=== PATIENT | female | born 1950 | race Caucasian/White ===

== ENCOUNTER → 2023-03-30 09:23 | Day surgery (SDC) | payer MEDICARE, OTHER, SELFPAY ==
[2023-03-30 10:02] LABS: Glucose - Point of Care 113 mg/dl (70-99)
--- NOTE | 2023-03-31 17:27 | ITS.CL.CARDI ---
[facility] - Cardioversion
Cardioversion
Procedure Report:
Date of Procedure: 03/30/23
Procedure: Cardioversion
Indication: Symptomatic atrial fibrillation
Performing Physician: Parisa Crump DO [facility]
Technique: The patient was brought to the holding area. Signed informed consent was obtained. A time out was called and performed. The patient was anesthetized by the anesthesia service. A transesophageal echocardiogram was performed; no left
atrial appendage thrombus. R2 pads were placed anteriorly and posteriorly. A 200 J synchronized biphasic shock restored normal sinus rhythm without significant bradycardia. There were no complications.
Conclusion: Uncomplicated cardioversion from atrial fibrillation to sinus rhythm.
Recommendation: Routine post cardioversion care. Continue long-term anticoagulation.
== END ==
LOC: CATH 09:23
PROVIDERS: ATTENDING PHYSICIAN Internal Medicine Cardiovascular Disease; FAMILY PHYSICIAN Nurse Practitioner Family; OTHER PHYSICIAN Internal Medicine Cardiovascular Disease
DX: I08.3 Combined rheumatic disorders of mitral, aortic and tricuspid valves (principal); I48.0 Paroxysmal atrial fibrillation; I10 Essential (primary) hypertension; E78.5 Hyperlipidemia, unspecified; E11.9 Type 2 diabetes mellitus without complications; Z82.49 Family history of ischemic heart disease and other diseases of the circulatory system; Z79.01 Long term (current) use of anticoagulants; Z79.84 Long term (current) use of oral hypoglycemic drugs; Z87.891 Personal history of nicotine dependence
CPT/HCPCS: 93325; 93320; 93312; 82962; 92960; 93005

== ENCOUNTER → 2023-04-24 09:56 | Outpatient (REF) | payer MEDICARE, OTHER, SELFPAY | LOC: RAD 09:56 | PROVIDERS: ATTENDING PHYSICIAN Student in an Organized Health Care Education/Training Program; FAMILY PHYSICIAN Nurse Practitioner Family | DX: N18.32 Chronic kidney disease, stage 3b (principal) | CPT/HCPCS: 76770 ==

== ENCOUNTER → 2023-06-21 13:41 | Outpatient (REF) | payer MEDICARE, OTHER, SELFPAY | LOC: RAD 13:41 | PROVIDERS: ATTENDING PHYSICIAN Nurse Practitioner Family | DX: M25.511 Pain in right shoulder (principal) | CPT/HCPCS: 73030 ==

== ENCOUNTER → 2023-08-31 14:48 | Outpatient (REF) | payer MEDICARE, OTHER, SELFPAY | LOC: MRI 14:48 | PROVIDERS: ATTENDING PHYSICIAN Specialist; FAMILY PHYSICIAN Nurse Practitioner Family | DX: M25.511 Pain in right shoulder (principal) | CPT/HCPCS: 70551; 73221 ==

== ENCOUNTER → 2023-10-10 05:54 | Day surgery (SDC) | payer MEDICARE, OTHER, SELFPAY ==
[2023-09-25 11:04] VITALS: BMI 28.7
[2023-10-10] VITALS (19 sets, daily range): BP systolic 107–143; BP diastolic 43–93
[2023-10-10 06:56] LABS: Glucose - Point of Care 111 mg/dl (70-99)
[2023-10-10 08:38] LABS: ACT-LR - POC 236 Seconds (116-155)
[2023-10-10 08:53] LABS: ACT-LR - POC 310 Seconds (116-155)
[2023-10-10 09:10] LABS: ACT-LR - POC 392 Seconds (116-155)
[2023-10-10 09:18] LABS: Glucose - Point of Care 127 mg/dl (70-99)
[2023-10-10 09:35] LABS: ACT-LR - POC 340 Seconds (116-155)
--- NOTE | 2023-10-10 10:06 | ITS.CL.ABL ---
[employer] - Ablation
Ablation
Procedure Report:
Primary Director Of Event Marketing: Paresh Young MD
Procedure Date: 10/10/2023
Patient History:
Patient is a pleasant 73-year-old female with past medical history significant for hypertension, hyperlipidemia, diabetes mellitus type 2, CKD stage IIIb, and symptomatic paroxysmal now persistent atrial fibrillation.
See H&P for complete details.
Indication:
Symptomatic persistent atrial fibrillation
Arrhythmia Specific History:
Prior Medical Therapies for Rate and Rhythm Control:
X Beta-michael
[ ] Calcium channel-michael
[ ] Amiodarone
[ ] Dronederone
[ ] Sotalol
[ ] Flecainide
[ ] Dofetilide
X Options limited by bradycardia
[ ] Options limited by comorbid renal disease
Prior Procedural Therapies for AF/AFL:
X Cardioversion
[ ] Pulmonary Vein Isolation
[ ] Posterior Wall Isolation
[ ] Additional lines (Specify)
[ ] Surgical Lentz-MAZE or PVI (Specify)
Procedure Performed:
X AF ablation procedure (44711) -- includes LA/CS pacing, trans-septal, 3D mapping, + ICE
[ ] +IV drug (71053)
[ ] +Other Arrhythmia (04192)
X +Other AF Line/ablation (70370) - Posterior Wall isolation
Risks and expected recovery has been explained in detail. Alternative options have been explored, and in a shared-decision making fashion we have decided that this was the most appropriate procedure.
Method
NPO status confirmed. Grounding pad applied. Defibrillator pads applied. Continuous surface ECG, pulse oximetry, and blood pressure were monitored. Procedure was performed under general anesthesia, with anesthesia services.
Both groins were clipped, prepped with Chloraprep, and draped in sterile fashion. Time out was called. Local anesthesia administered with bupivacaine. The right and left femoral veins were accessed for catheter placement, using ultrasound guidance,
micro-puncture needle/wire, and modified seldinger technique. 3 sheaths were placed. The following catheters were used:
[ ] Tacticath SE (D/F Curve) ablation catheter
X Viewflex 9Fr ICE catheter
X Inquiry decapolar 6Fr diagnostic catheter
[ ] CRD Hex 6Fr
[ ] Arctic Front Advance Cryoballoon ([ ]28mm[ ]23mm)
[ ] Achieve Advance mapping catheter ([ ]15mm[ ]20mm)
X FlexCath Contour 10 Fr with PulseSelect PFA Catheter
X Advisor HD Grid Mapping Catheter, SE
[ ] Acuson AcuNav 8 Fr ICE catheter
[ ]Other: [ ]
Intracardiac ultrasound (ICE) was carefully advanced into the right atrium to guide sheath placement over a J-wire, catheter placement, guide trans-septal puncture, identify potential complications, identify anatomic structures and ensure proper
contact between ablation catheter and tissue.
Heparin was given prior to trans-septal puncture. Heparin was given to achieve and maintain a target ACT of 300-400 seconds throughout the procedure.
Trans-septal access was performed under ICE guidance. The trans-septal puncture was performed with a SafeSept wire through a Brockenbrough needle assembly through the steerable sheath. The wire was visualized as it entered the LSPV and system
advanced under ICE guidance and fluoroscopy into the LA. The Brockenbrough needle assembly, SafeSept wire and sheath dilator were removed under negative pressure. LA pressure was measured and recorded.
ICE and 3D mapping was performed to identify relevant cardiac structures. A trace pericardial effusion was noted circumferentially with prominent pericardial fat pad. This remained unchanged during and at completion of the procedure. A careful 3D
map was created to assess for regions of low-voltage and abnormal electrogram signals using HD grid mapping catheter and PulseSelect catheter. Additional mapping was performed as outlined below.
Prior to ablation, glycopyrrolate was provided. PulseSelect catheter was advanced over J-wire to the ostium of each vein. Pulmonary vein isolation was performed with ostial and antral lesions in a circumferential manner. Contact was visualized via
EAM, ICE, fluoroscopy, and EGM signals. During ablation, patient was noted to go into atrial fibrillation. During ablation, patient had return to sinus rhythm. Posterior wall isolation was performed by anchoring the J-wire within the pulmonary
vein and placing the PulseSelect catheter in contact with the posterior wall as visualized by aforementioned methods. Following completion of ablation lesions, a post-ablation voltage/activation map was performed in sinus rhythm. Entrance and exit
block were confirmed for each vein and the posterior wall.
Catheter and sheath were removed from the left atrium and post-ablation intracardiac echo evaluation was consistent with pre-ablation with no changes and no pericardial effusion and there is no left atrial thrombus or left ventricle thrombus seen.
Electrophysiology study was performed. Hemostasis was obtained with figure of 8 stitch for each groin and with manual pressure. Protamine was used for reversal.
Estimated Blood Loss
5 mL
Complications
None
Fluoroscopy: 3.3 minutes; 7.01 mGy; DAP 0.938
Baseline Intervals:
Rhythm: Sinus rhythm
NE: 164 ms
QRS: 79 ms
QT: 436 ms
QTc: 408 ms
Post-Procedure Intervals:
NE: 164 ms
QRS: 78 ms
QT: 432 ms
QTc: 489 ms
A-A: 780 ms
R-R: 780 ms
AVWB: 360 ms
AERP: 600/270 ms
Recommendations
- Bedrest with straight-leg precautions as ordered
- Anticipate same day discharge if patient meeting clinical metrics
- Resume home medications as indicated
- Ok to resume anticoagulation tonight if patient and groin sites stable
- PPI daily for 30 days
- Plan for follow-up in office as scheduled
Papito Kerr DO
Clinical Cardiac [employer]
cc: Paresh Young MD; BRIDGET Rush
[2023-10-10 11:37] LABS: ACT-LR - POC 174 Seconds (116-155)
[2023-10-10 13:35] LABS: ACT-LR - POC > 397 Seconds (116-155)
--- NOTE | 2023-10-10 14:49 | W.PN.UPDATE ---
Update Note
Progress Note Update
73 yo WF s/p PVI (same day). She feels good, no cp, sob, donny diet, voiding, amb w/o dizziness, R fem site c/d/i no HT, soft, EKG SR with occ PAC's and PVC's. She will continue OAC Eliquis at 4pm at home, we will add PPI for 30 days. Activity
restrictions reviewed. She will f/u DCA in 2 mo. She is for d/c home after 3pm.
Patient is a pleasant 73-year-old female with past medical history significant for hypertension, hyperlipidemia, diabetes mellitus type 2, CKD stage IIIb, and symptomatic paroxysmal now persistent atrial fibrillation.
See H&P for complete details.
Indication:
Symptomatic persistent atrial fibrillation
Procedure Performed:
X AF ablation procedure (10364) -- includes LA/CS pacing, trans-septal, 3D mapping, + ICE
[ ] +IV drug (99546)
[ ] +Other Arrhythmia (90072)
X +Other AF Line/ablation (33497) - Posterior Wall isolation
== END | disposition home or self-care (01) ==
LOC: CATH 05:54
PROVIDERS: ATTENDING PHYSICIAN Internal Medicine Cardiovascular Disease; FAMILY PHYSICIAN Nurse Practitioner Family; OTHER PHYSICIAN Internal Medicine Cardiovascular Disease
DX: I48.19 Other persistent atrial fibrillation (principal); N18.32 Chronic kidney disease, stage 3b; E78.5 Hyperlipidemia, unspecified; E11.22 Type 2 diabetes mellitus with diabetic chronic kidney disease; I12.9 Hypertensive chronic kidney disease with stage 1 through stage 4 chronic kidney disease, or unspecified chronic kidney disease; R53.83 Other fatigue; R00.2 Palpitations; R06.02 Shortness of breath; Z79.899 Other long term (current) drug therapy; Z79.01 Long term (current) use of anticoagulants; E11.36 Type 2 diabetes mellitus with diabetic cataract; Z87.891 Personal history of nicotine dependence; M81.0 Age-related osteoporosis without current pathological fracture; M19.90 Unspecified osteoarthritis, unspecified site; F32.A Depression, unspecified; F41.9 Anxiety disorder, unspecified
CPT/HCPCS: C1894; C1733; C1769; C1766; C1759; C1732; 76937; 82962; 85347; 93005; 93656

== ENCOUNTER → 2023-12-26 10:07 | Outpatient (REF) | payer MEDICARE, OTHER, SELFPAY | LOC: WDC 10:07 | PROVIDERS: ATTENDING PHYSICIAN Family Medicine; FAMILY PHYSICIAN Nurse Practitioner Family | DX: Z12.31 Encounter for screening mammogram for malignant neoplasm of breast (principal) | CPT/HCPCS: 77063; 77067 ==

== ENCOUNTER 2024-08-08 06:18 | Day surgery (SDC) | payer MEDICARE, OTHER, SELFPAY ==
[2024-08-08 07:37] LABS: Glucose - Point of Care 121 mg/dl (70-99)
== END 2024-08-08 09:32 | disposition home or self-care (01) ==
LOC: GI 06:18
PROVIDERS: ATTENDING PHYSICIAN Internal Medicine Gastroenterology
DX: Z12.11 Encounter for screening for malignant neoplasm of colon (principal); R19.4 Change in bowel habit; K64.8 Other hemorrhoids; D12.0 Benign neoplasm of cecum; D12.2 Benign neoplasm of ascending colon; D12.3 Benign neoplasm of transverse colon; D12.5 Benign neoplasm of sigmoid colon; Z86.0100 Personal history of colon polyps, unspecified
CPT/HCPCS: 45385; 45380; 88305; 82962

== ENCOUNTER → 2025-01-10 11:06 | Outpatient (REF) | payer MEDICARE, OTHER, SELFPAY | LOC: WDC 11:06 | PROVIDERS: ATTENDING PHYSICIAN Nurse Practitioner Family | DX: Z12.31 Encounter for screening mammogram for malignant neoplasm of breast (principal) | CPT/HCPCS: 77063; 77067 ==

== ENCOUNTER 2025-02-12 10:49 | Outpatient (RCR) | payer MEDICARE, OTHER, SELFPAY | END 2025-02-12 23:59 | disposition home or self-care (01) | LOC: RPT 10:49 | PROVIDERS: ATTENDING PHYSICIAN Specialist; FAMILY PHYSICIAN Nurse Practitioner Family | DX: M25.562 Pain in left knee (principal); Z73.6 Limitation of activities due to disability; M62.81 Muscle weakness (generalized); M25.552 Pain in left hip; R26.89 Other abnormalities of gait and mobility; W19.XXXD Unspecified fall, subsequent encounter; Z96.652 Presence of left artificial knee joint | CPT/HCPCS: 97110; 97162; 97530 ==